=== PATIENT | female | born 1960 | race Caucasian/White ===

== ENCOUNTER → 2016-08-19 | Outpatient (CLI) | payer BC ==
[~2016-08-19] MED LIST: ESCI1TAB18 PO; LEVO112T17 PO; LISI-461 PO; RETIN A TOP; TAMO20TA47 PO
[2016-08-19 12:50] VITALS: BP 127/82; PULSE 84; TEMP 37.2; O2SAT 99
--- NOTE | 2016-08-19 13:30 | Radiation Oncology Follow-Up ---
Radiation Oncology Follow-Up Date of Visit Aug 19, 2016. Reason For Visit Annual follow-up Radiation Completion Date 12/02/12 Diagnosis (1) Breast cancer Status: Resolved Onset Date: 08/21/2012 Histology Subtype: lobular Stage: l (A) Permanent Comment: Abnormal right breast mammogram Biopsy revealing DCIS and LCIS 07/11/2012 Status post lumpectomy and sentinel lymph node biopsy 08/21/2012 revealing invasive lobular carcinoma and DCIS Stage [id number] estrogen receptor positive, progesterone receptor positive, HER- 2/dalila negative Oncotype DX score 14 Status post completion of radiation therapy 12/02/2012 received 6120 cGy Last Edited By: Kay Dickey on July 02, 2014 16:12 Interim History Doing well over this past year. She has noted no changes to her breast. She has noted no masses or tenderness no change of the axilla. She's had no swelling of her arm. She is up-to-date on mammography. She had a mammogram 02/2016 at [facility] in [place]. This was negative with no evidence of malignancy. Normal interval follow-up was recommended. BI-RADS Category 1. She continues on tamoxifen and denies side effects. Allergies Coded Allergies: Diphenhydramine (Unverified Allergy, Intermediate, RASH/ HEART RACES, 12/27) Home Medications Scheduled Escitalopram Oxalate (Lexapro), 10 MG PO DAILY Levothyroxine Sodium (Levoxyl), 125 MG PO DAILY Lisinopril (Zestril), 10 MG PO DAILY Tamoxifen (Nolvadex), 20 MG PO DAILY [retin-a.025% cream], 1 APPLN [facility] Review of Systems Gastrointestinal: Symptoms: WNL Oral: Symptoms: No Problems Respiratory: Symptoms: WNL Urinary: Symptoms: WNL Skin: Symptoms: No Problems Breast: Right Upper Arm Measurement: 33.0 Right Mid Arm Measurement: 23.5 Right Wrist Measurement: 15.0 Left Upper Arm Measurement: 30.8 Left Mid Arm Measurement: 23.3 Left Wrist Measurement: 15.0 Arm Dominence: Right Physical Exam Vital Signs Date Time Temp Pulse Resp B/P (MAP) Pulse Ox O2 Delivery O2 Flow Rate FiO2 08/19/16 12:50 37.2 84 20 127/82 99 Fatigue: None General Appearance: no apparent distress Eyes: normal inspection, EOMI ENT: normal ENT inspection, hearing grossly normal Neck: no adenopathy, thyroid normal Respiratory/Chest: lungs clear, no respiratory distress, no accessory muscle use Breast: Breast examination reveals well-healed incisions of the right breast. There are Fibrous changes in the area of the incision. She also has telangiectasia. There are no masses or tenderness and no axillary adenopathy. Using the [place] score cosmesis she has a good outcome. The left breast showed no masses or tenderness and no axillary adenopathy. Cardiovascular: regular rate, rhythm, no gallop, no murmur Abdomen: non tender, soft Extremities: no pedal edema Neurologic/Psychiatric: no motor/sensory deficits, alert, normal mood/affect Skin: warm/dry Additional Studies Mammography as reviewed above. Assessment & Plan Plan: Continue annual mammography. Continue regular follow-up with Dr. Valdes in medical oncology and her primary care physician. She continues on tamoxifen. We asked her to return to our office in 1 year. She may call if she has any questions or concerns in the interim. Total Time In Follow-Up I spent 20 minutes speaking to the patient and performing examination. Best 15 minutes reviewing information and completing this note. Copy To Sarai Yeung D.O.; Mauricio Valdes M.D. Problem Qualifiers (1) Breast cancer: Breast location: central portion of breast Estrogen receptor status: positive Patient sex: female Laterality: right Qualified Codes: C50.111 - Malignant neoplasm of central portion of right female breast; Z17.0 - Estrogen receptor positive status [ER+]
== END | disposition home or self-care (01) ==
LOC: C.ONC 12:38
PROVIDERS: ATTEND Physician Assistant Medical
DX: Z08 Encounter for follow-up examination after completed treatment for malignant neoplasm (principal); Z92.3 Personal history of irradiation; Z85.3 Personal history of malignant neoplasm of breast